=== PATIENT | female | born 1970 | race Caucasian/White ===

== ENCOUNTER 2025-05-02 17:05 | Emergency (ER) | payer OTHER ==
[2025-05-02 17:13] VITALS: BP 120/75; PULSE 110; RESP 17; TEMP 98.5; BMI 24.7
[2025-05-02] MEDS ORDERED: IBUPROFEN 600 MG TABLET (FP) PO ONE (17:14)
[2025-05-02] MEDS: IBUPROFEN 600 MG TABLET (FP) PO ONE (17:17)
[2025-05-02 21:27] LABS: HIV INTERPRETATION NEGATIVE (NEGATIVE)
[2025-05-02 21:28] LABS: HCV DIAGNOSTIC IN-HOUSE W/RFLX NON-REACTIVE (NONREACTIVE)
== END 2025-05-02 18:51 | disposition home or self-care (01) ==
LOC: EDSEX 17:05 → FER 17:05
DX: S22.42XA Multiple fractures of ribs, left side, initial encounter for closed fracture (principal); S40.012A Contusion of left shoulder, initial encounter; S80.212A Abrasion, left knee, initial encounter; S50.312A Abrasion of left elbow, initial encounter; V18.0XXA Pedal cycle driver injured in noncollision transport accident in nontraffic accident, initial encounter; Y92.410 Unspecified street and highway as the place of occurrence of the external cause
CPT/HCPCS: 36415; 71101-TC-LT-FY; 73030-TC-LT-FY; 86803; 87389; 99284-25